=== PATIENT | female | born 1950 | race Caucasian/White ===

== ENCOUNTER 2021-10-30 16:03 | Emergency (ER) | payer MEDICARE, OTHER | END 2021-10-30 17:51 | disposition home or self-care (01) | LOC: ER1 16:03 | DX: R09.89 Other specified symptoms and signs involving the circulatory and respiratory systems (principal); Z88.0 Allergy status to penicillin; Z20.822 Contact with and (suspected) exposure to COVID-19; Z88.1 Allergy status to other antibiotic agents | CPT/HCPCS: 99283; U0002 ==